=== PATIENT | male | born 1975 | race African-American/Black ===

== ENCOUNTER 2017-04-11 02:32 | Emergency (ER) | payer OTHER ==
[2017-04-11 02:53] LABS: BASOPHIL 0.5 % (0-2); EOSINOPHIL 2.7 % (0-5); HCT 42.5 % (42.0-52.0); HGB 15.1 g/dl (13.2-18.0); LYMPHOCYTE 38.5 % (15-48); MCHC 35.5 g/dL (32.0-36.0); MCV 84.5 fL (78.0-100.0); MONOCYTE 11.3 % (0-12); MPV 9.4 fL (6.0-9.5); PLT 314 K/uL (150-400); RBC 5.03 M/uL (4.70-6.00); RDW 13.8 % (11.5-14.0); WBC 5.6 K/uL (4.0-10.5)
[2017-04-11 03:05] LABS: INR 0.97 (0.9-1.2); PROTHROMBIN TIME 12.5 SECONDS (11.7-14.0); PTT 28.1 SECONDS (23.2-31.4)
[2017-04-11 03:06] LABS: D-DIMER 0.51 ug/mLFEU (0.00-0.41)
[2017-04-11 03:13] LABS: ALBUMIN 4.3 g/dL (3.5-5.0); BILIRUBIN - TOTAL 0.3 mg/dL (0.1-1.0); CREATININE 1.2 mg/dL (0.7-1.2); GLOBULIN (CALCULATION) 2.6 g/dL (2.2-4.2); MAGNESIUM 1.95 mg/dL (1.40-2.10); TOTAL PROTEIN 6.9 g/dL (6.4-8.3)
[2017-04-11 03:16] LABS: MYOGLOBIN 87 ng/mL (26-65); PRO-BNP 5 pg/mL (0-125); TROPONIN T < 0.010 ng/mL
[2017-04-11 03:19] LABS: CKMB 7.83 ng/mL (0.97-4.94)
== END 2017-04-11 04:56 | disposition home or self-care (01) ==
LOC: FER 02:32
PROVIDERS: Emergency Medicine Emergency Medical Services
DX: R07.89 Other chest pain (principal); E86.9 Volume depletion, unspecified; I10 Essential (primary) hypertension; Z79.899 Other long term (current) drug therapy
CPT/HCPCS: 36415; 71010; 80053; 82550; 82553; 83690; 83735; 83874; 83880; 84484; 85025; 85379; 85610; 85730; 93005; C9113

== ENCOUNTER 2021-10-31 03:50 | Emergency (ER) | payer OTHER ==
[~2021-10-31 03:50] MED LIST: BACLOFEN 20MG T20 MG PO
[2021-10-31 04:35] LABS: BASOPHIL 0.6 % (0-2); EOSINOPHIL 4.2 % (0-5); HCT 41.8 % (42.0-52.0); HGB 14.4 g/dl (13.2-18.0); LYMPHOCYTE 29.6 % (15-48); MCH 29.5 pg (25.0-31.0); MCHC 34.4 g/dL (32.0-36.0); MCV 85.7 fL (78.0-100.0); MONOCYTE 20.7 % (0-12); MPV 9.4 fL (6.0-9.5); NEUTROPHIL 44.3 % (41-80); NRBC 0; PLT 243 K/uL (150-400); RBC 4.88 M/uL (4.70-6.00); RDW 13.3 % (11.5-14.0); WBC 3.6 K/uL (4.0-10.5)
[2021-10-31 04:56] LABS: CREATININE 1.16 mg/dL (0.67-1.17); POTASSIUM 3.8 mmol/L (3.5-5.1)
[2021-10-31 05:13] LABS: CORONAVIRUS 2019 SARS-COV-2 NEGATIVE (NEGATIVE); INFLUENZA A NAA NEGATIVE (NEGATIVE)
[2021-10-31] MEDS ORDERED: VENTOLIN HFA IN18 GM INH (05:25)
[2021-10-31] MEDS ORDERED: MUCINEX DM ER1 EACH PO (05:25)
[2021-10-31] MEDS ORDERED: PREDNISONE 20MG20 MG PO (05:25)
[2021-10-31] MEDS ORDERED: AZITHROMYCIN250 MG PO (05:25)
== END 2021-10-31 05:49 | disposition home or self-care (01) ==
LOC: FER 03:50
PROVIDERS: Internal Medicine
DX: J20.9 Acute bronchitis, unspecified (principal); I10 Essential (primary) hypertension; Z20.822 Contact with and (suspected) exposure to COVID-19; Z79.899 Other long term (current) drug therapy
CPT/HCPCS: 36415; 71045; 80048; 84484; 85025; 93005; 94640; 94664; J1100; U0002